=== PATIENT | male | born 1935 ===

== ENCOUNTER 2017-10-19 13:28 | Inpatient (IN) | payer MEDICARE ==
[~2017-10-19] VITALS: Ht 172.7 cm; Wt 71.7 kg
[2017-10-19 16:14] VITALS: BP 103/56; PULSE 94; TEMP 98.4
[2017-10-19] MEDS ORDERED: TYLENOL 500MG500 MG PO (19:49)
[2017-10-19] MEDS ORDERED: PLAVIX 75MG TAB75 MG PO (19:50)
[2017-10-19] MEDS ORDERED: ASPIRIN E.C. 8181 MG PO (19:50)
[2017-10-19] MEDS ORDERED: ARICEPT 5MG PO (19:50)
[2017-10-19] MEDS ORDERED: FERRO-TIME325 MG PO (19:51)
[2017-10-19] MEDS ORDERED: HCTZ 25MG TAB25 MG PO (19:52)
[2017-10-19] MEDS ORDERED: PRINIVIL20 MG PO (19:52)
[2017-10-19] MEDS ORDERED: MULTIPLE VITAMI1 CAP PO (19:53)
[2017-10-19] MEDS ORDERED: PRILOSEC 20MG20 MG PO (19:54)
[2017-10-19] MEDS ORDERED: ULTRAM 50MG TAB50 MG PO (19:55)
[2017-10-19] MEDS ORDERED: ARICEPT10 MG PO (19:58)
[2017-10-20 03:57] VITALS: BP 118/64; PULSE 93; TEMP 97.9
[2017-10-20 18:00] VITALS: BP 106/59; PULSE 70; TEMP 97.7
[2017-10-21 04:42] VITALS: BP 133/63; PULSE 85; TEMP 97.5
[2017-10-21 17:30] VITALS: BP 121/56; PULSE 102; TEMP 98.8
[2017-10-21 23:00] VITALS: PULSE 88
[2017-10-22 04:31] VITALS: BP 116/64; PULSE 51; TEMP 98.5
[2017-10-22 15:44] LABS: ALBUMIN 3.9 gm/dL (3.5-5.0); BILIRUBIN,TOTAL 0.7 mg/dL (0.0-1.0); CREATININE, serum 1.5 mg/dL (0.66-1.25); POTASSIUM 3.1 mmol/L (3.4-5.0); TOTAL PROTEIN 7.6 gm/dL (6.4-8.2)
[2017-10-22 16:23] VITALS: BP 121/47; PULSE 58; TEMP 97
[2017-10-22 19:17] LABS: MEAN CELL VOLUME 71 fl (80.0-100.0); MEAN CORPUSCULAR HGB CONC 31 g/dl (33.0-37.0); MEAN PLATELET VOLUME 10.6 fl (7.4-10.4); PLATELET COUNT 283 K/mm3 (130-400); RED BLOOD COUNT 4.31 M/mm3 (4.20-5.60); REDCELL DISTRIBUTION WIDTH-CV 18.8 % (11.5-14.5)
[2017-10-22 19:29] LABS: HEMATOCRIT 30.4 % (42.0-52.0); HEMOGLOBIN 9.4 g/dl (13.5-18.0); MEAN CORPUSCULAR HEMOGLOBIN 22 pg (27.0-31.0)
[2017-10-22 19:32] LABS: BAND 1 % (0-10); EOSINOPHIL 2 % (0-4); HYPOCHROMIA 1+; LYMPHOCYTE 10 % (20.0-51.0); MICROCYTOSIS 2+; NEUTROPHILS 82 % (42.0-75.2); PLATELET ESTIMATE NORMAL (NORMAL)
[2017-10-23 04:02] VITALS: BP 140/73; PULSE 65; TEMP 96.5
[2017-10-23 07:25] LABS: ALBUMIN 3.6 gm/dL (3.5-5.0); BILIRUBIN,TOTAL 0.5 mg/dL (0.0-1.0); CREATININE, serum 1.53 mg/dL (0.66-1.25); POTASSIUM 3.2 mmol/L (3.4-5.0); TOTAL PROTEIN 7.2 gm/dL (6.4-8.2)
[2017-10-23 15:01] VITALS: BP 92/51; PULSE 84; TEMP 97.2
[2017-10-24 04:42] VITALS: BP 128/50; PULSE 74; TEMP 98.6
[2017-10-24 18:30] VITALS: BP 132/53; PULSE 71; TEMP 97
[2017-10-25 02:34] VITALS: BP 91/40; PULSE 93; TEMP 98.7
[2017-10-25 06:58] LABS: CALCIUM 9.7 mg/dL (8.4-10.2); CREATININE, serum 1.16 mg/dL (0.66-1.25); POTASSIUM 3.9 mmol/L (3.4-5.0)
[2017-10-25 14:38] VITALS: BP 119/54; PULSE 70; TEMP 97.2
[2017-10-26 05:07] VITALS: BP 123/59; PULSE 76; TEMP 98.2
[2017-10-26 17:48] VITALS: BP 126/58; PULSE 85; TEMP 97.4
[2017-10-27 04:22] VITALS: BP 101/43; PULSE 80; TEMP 98
[2017-10-27 07:38] VITALS: BP 138/52
[2017-10-27 17:37] VITALS: BP 80/42; PULSE 63; TEMP 96.8
[2017-10-28 06:07] VITALS: BP 136/49; PULSE 84; TEMP 97.8
[2017-10-28 15:22] VITALS: BP 127/57; PULSE 85; TEMP 97.6
[2017-10-28 21:00] VITALS: BP 132/47
[2017-10-29 04:00] VITALS: BP 125/54; PULSE 75; TEMP 97.6
[2017-10-29 17:15] VITALS: BP 102/49; PULSE 89; TEMP 98.6
[2017-10-30 05:01] VITALS: BP 106/53; PULSE 88; TEMP 98.1
[2017-10-30 07:20] LABS: HEMATOCRIT 27.4 % (42.0-52.0); HEMOGLOBIN 8.1 g/dl (13.5-18.0)
[2017-10-30 16:54] VITALS: BP 130/61; PULSE 76; TEMP 97.6
[2017-10-31 06:01] VITALS: BP 128/54; PULSE 74; TEMP 98.1
[2017-10-31 15:24] VITALS: BP 115/45; PULSE 62; TEMP 97
[2017-11-01 03:54] VITALS: BP 115/47; PULSE 66; TEMP 97.7
[2017-11-01 15:54] VITALS: BP 103/51; PULSE 71; TEMP 97.1
[2017-11-02] VITALS (10 sets, daily range): BP systolic 107–136; BP diastolic 43–81; PULSE 47–85; TEMP 97.4–98.4
[2017-11-03 04:00] VITALS: BP 125/49; PULSE 74; TEMP 97.6
[2017-11-03 17:07] VITALS: BP 118/50; PULSE 90; TEMP 97
[2017-11-04 05:46] VITALS: BP 118/51; PULSE 69; TEMP 97.9
[2017-11-04 16:02] VITALS: BP 126/46; PULSE 61; TEMP 98.8
[2017-11-05 04:25] VITALS: BP 157/69; PULSE 48; TEMP 98.2
[2017-11-05 09:17] VITALS: PULSE 55
[2017-11-05 16:45] VITALS: BP 129/57; PULSE 84; TEMP 98.5
[2017-11-06 05:34] VITALS: BP 104/44; PULSE 65; TEMP 98.4
[2017-11-06 06:42] LABS: HEMATOCRIT 25.7 % (42.0-52.0); HEMOGLOBIN 7.5 g/dl (13.5-18.0)
[2017-11-06 15:37] VITALS: BP 129/59; PULSE 79; TEMP 98.3
[2017-11-07 04:55] VITALS: BP 107/42; PULSE 83; TEMP 98
[2017-11-07 15:02] VITALS: BP 118/55; PULSE 72; TEMP 98.4
[2017-11-08 06:01] VITALS: BP 147/54; PULSE 75; TEMP 97.8
[2017-11-08 06:13] LABS: HEMATOCRIT 24.1 % (42.0-52.0); HEMOGLOBIN 7.1 g/dl (13.5-18.0)
[2017-11-08 18:00] VITALS: BP 129/55; PULSE 71; TEMP 98.6
[2017-11-09 05:18] VITALS: BP 100/44; PULSE 72; TEMP 98.1
[2017-11-09 16:13] VITALS: BP 136/50; PULSE 62; TEMP 97.9
[2017-11-10 05:39] VITALS: BP 123/52; PULSE 65; TEMP 97.2
[2017-11-10 07:08] LABS: HEMATOCRIT 24.8 % (42.0-52.0); HEMOGLOBIN 7.3 g/dl (13.5-18.0)
[2017-11-10 14:04] VITALS: BP 103/46; PULSE 76; TEMP 98
[2017-11-11 06:00] VITALS: BP 134/58; PULSE 69; TEMP 98
[2017-11-11 15:16] VITALS: BP 136/66; PULSE 75; TEMP 97.3
[2017-11-12 05:41] VITALS: BP 123/57; PULSE 82; TEMP 97.8
[2017-11-12 15:30] VITALS: BP 130/58; PULSE 74; TEMP 98.7
[2017-11-13 04:30] VITALS: BP 130/58; PULSE 67; TEMP 97.6
[2017-11-13 06:24] LABS: BASO # 0.1 (0.0-0.2); BASO % 0.9 % (0.0-2.0); EOS # 0.3 (0.0-0.7); EOS % 4.7 % (0-4.0); GRAN # 3.2 (1.4-6.5); GRAN % 58.2 % (42.2-75.2); LYMPH # 1.3 (1.2-3.4); LYMPH % 23.7 % (20.0-51.0); MEAN CELL VOLUME 79 fl (80.0-100.0); MEAN CORPUSCULAR HGB CONC 30 g/dl (33.0-37.0); MEAN PLATELET VOLUME 10.4 fl (7.4-10.4); MONO # 0.7 (0.1-0.6); MONO % 12.1 % (1.7-9.3); PLATELET COUNT 439 K/mm3 (130-400); RED BLOOD COUNT 3.22 M/mm3 (4.20-5.60); REDCELL DISTRIBUTION WIDTH-CV 23.9 % (11.5-14.5)
[2017-11-13 06:42] LABS: HEMATOCRIT 25.5 % (42.0-52.0); HEMOGLOBIN 7.6 g/dl (13.5-18.0); MEAN CORPUSCULAR HEMOGLOBIN 24 pg (27.0-31.0)
[2017-11-13 15:37] VITALS: BP 119/58; PULSE 88; TEMP 97.1
[2017-11-14 06:10] VITALS: BP 158/59; PULSE 70; TEMP 96.8
[2017-11-14 14:45] VITALS: BP 107/51; PULSE 74; TEMP 98.7
[2017-11-15 06:30] VITALS: BP 133/72; PULSE 60; TEMP 98.4
[2017-11-15 16:08] VITALS: BP 128/59; PULSE 80; TEMP 97.7
[2017-11-16 05:00] VITALS: BP 120/48; PULSE 63; TEMP 98.1
[2017-11-16 13:11] VITALS: BP 128/55; PULSE 95; TEMP 97.7
[2017-11-17 04:11] VITALS: BP 131/55; PULSE 75; TEMP 97.2
[2017-11-17 06:25] LABS: HEMATOCRIT 24.5 % (42.0-52.0); HEMOGLOBIN 7.3 g/dl (13.5-18.0)
[2017-11-17 16:05] VITALS: BP 121/57; PULSE 68; TEMP 98
[2017-11-18 04:46] VITALS: BP 126/52; PULSE 67; TEMP 97.5
[2017-11-18 15:16] VITALS: BP 125/61; PULSE 77; TEMP 98.2
[2017-11-19 05:35] VITALS: BP 114/54; PULSE 76; TEMP 97.6
[2017-11-19 14:46] VITALS: BP 125/51; PULSE 72; TEMP 97.8
[2017-11-20 04:15] VITALS: BP 154/55; PULSE 61; TEMP 97.6
[2017-11-20 15:47] VITALS: BP 142/54; PULSE 72; TEMP 98.8
[2017-11-21 04:25] VITALS: BP 143/62; PULSE 85; TEMP 97.8
[2017-11-21] MEDS ORDERED: FERROUS SU325 MG/TAB PO (08:17)
[2017-11-21] MEDS ORDERED: LIPITOR 40MG TA40 MG PO (08:17)
[2017-11-21] MEDS ORDERED: ARICEPT10 MG PO (08:17)
[2017-11-21] MEDS ORDERED: ZESTRIL 5MG5 MG PO (08:18)
[2017-11-21] MEDS ORDERED: TYLENOL 325MG325 MG PO (08:18)
[2017-11-21] MEDS ORDERED: SEROQUEL 2525 MG/TAB PO (08:19)
[2017-11-21] MEDS ORDERED: REMERON 15M15 MG/TA1 PO (08:19)
[2017-11-21] MEDS ORDERED: TUMS ULTRA ST1000 MG PO (08:20)
[2017-11-21] MEDS ORDERED: PROTONIX20 MG PO (08:21)
== END 2017-11-21 14:50 | disposition home health service (06) | DRG 57 ==
PROVIDERS: Family Medicine; Internal Medicine; Internal Medicine Gastroenterology
PROC: 0DJD8ZZ Inspection of Lower Intestinal Tract, Via Natural or Artificial Opening Endoscopic (ICD-10-PCS; 2017-11-02)
PROC: 0DJ08ZZ Inspection of Upper Intestinal Tract, Via Natural or Artificial Opening Endoscopic (ICD-10-PCS; principal; 2017-11-02 12:30)
DX: I69.351 Hemiplegia and hemiparesis following cerebral infarction affecting right dominant side (principal); F05 Delirium due to known physiological condition; E87.1 Hypo-osmolality and hyponatremia; E44.0 Moderate protein-calorie malnutrition; K92.1 Melena; I69.391 Dysphagia following cerebral infarction; R13.10 Dysphagia, unspecified; G25.81 Restless legs syndrome; I10 Essential (primary) hypertension; Z87.891 Personal history of nicotine dependence; F06.31 Mood disorder due to known physiological condition with depressive features; K21.9 Gastro-esophageal reflux disease without esophagitis; F10.10 Alcohol abuse, uncomplicated; D50.0 Iron deficiency anemia secondary to blood loss (chronic); K44.9 Diaphragmatic hernia without obstruction or gangrene; K57.30 Diverticulosis of large intestine without perforation or abscess without bleeding
CPT/HCPCS: 99222-AI; 99232-AI; 99239; A9284; J1650; J2250; J2370; J2704; J7030; J7040